=== PATIENT | male | born 1970 | race Caucasian/White ===

== ENCOUNTER 2023-06-30 10:30 | Day surgery (SDC) | payer BC ==
[2023-06-24 14:34] VITALS: BMI 36.2
[~2023-06-30 10:30] MED LIST: HYDROmorphone 0.5 MG/0.5 ML SYRINGE IVP PRN; MIDAZOLAM 2 MG/2 ML VIAL IV PRN; SCOPOLAMINE 1 MG/72 HR PATCH TRANSDERM ONE
[2023-06-30] MEDS: LACTATED RINGERS 1,000 ML IV SCH (10:57)
[2023-06-30 11:05] LABS: Glucose,Whole Blood 114 mg/dL (70-110)
[2023-06-30] MEDS: DEXAMETHASONE SOD PHOSPHATE 4 MG/ML 1 ML VIAL IV ONE (11:09)
[2023-06-30] MEDS: ACETAMINOPHEN TAB 500 MG TAB PO PRN (11:09)
[2023-06-30] MEDS: ONDANSETRON 4 MG/2 ML VIAL IVP ONE (11:09)
[2023-06-30] MEDS: HEPARIN SODIUM,PORCINE 5,000 UNIT/ML 1 ML VIAL SQ PRN (11:16)
[2023-06-30] MEDS: MIDAZOLAM 2 MG/2 ML VIAL IVP ONE (11:53)
[2023-06-30] MEDS: fentaNYL (PF) 50 MCG/ML 2 ML AMP IVP ONE (11:54)
[2023-06-30] MEDS ORDERED: SUCCINYLCHOLINE CHLORIDE 200 MG/10 ML VIAL IV ONE (11:59)
[2023-06-30] MEDS ORDERED: DEXAMETHASONE SOD PHOSPHATE 4 MG/ML 1 ML VIAL ONE (11:59)
[2023-06-30] MEDS ORDERED: KETOROLAC 30 MG/ML 1 ML VIAL ONE (11:59)
[2023-06-30] MEDS ORDERED: MIDAZOLAM 2 MG/2 ML VIAL ONE (11:59)
[2023-06-30] MEDS ORDERED: LIDOCAINE 1% INJ 10MG/ML (20 ML MDV) ONE (11:59)
[2023-06-30] MEDS ORDERED: PROPOFOL 10 MG/ML 20 ML VIAL IV ONE (11:59)
[2023-06-30] MEDS ORDERED: NEOSTIGMINE 1 MG/ML 10 ML VIAL ONE (11:59)
[2023-06-30] MEDS ORDERED: fentaNYL (PF) 50 MCG/ML 2 ML AMP ONE (11:59)
[2023-06-30] MEDS ORDERED: GLYCOPYRROLATE 0.2 MG/ML 2 ML VIAL ONE (11:59)
[2023-06-30] MEDS ORDERED: ROPIVACAINE 5 MG/ML 30 ML VIAL ONE (11:59)
[2023-06-30] MEDS ORDERED: ROCURONIUM 10 MG/ML (5 ML VIAL) IV ONE (11:59)
--- NOTE | 2023-06-30 12:02 | P.ANPRN ---
Procedure Note - Anesthesia - Nerve Block Performed Bilateral Rectus Abdominis Single Time Out Performed: Yes Date of Procedure: 06/30/23 Procedure Start Time: 11:52 Procedure Stop Time: 11:57 Location of Patient: PreOp Indication: Acute Post-Operative Pain, Analgesia, Requested by Surgeon Sedation Type: Sedate with meaningful contact maintained Preparation: Sterile Prep Position: Supine Catheter: None Needle Types: Pajunk Needle Gauge: 21 Ultrasound used to visualize needle placement: Yes Ultrasound used to observe medication spread: Yes Injectate: 0.5% Ropivacaine (see comment for volume) (30cc with 10mg dexamethasone) Blood Aspirated: No Pain Paresthesia on Injection Noted: No Resistance on Injection: Normal Image Stored and Saved: Yes Events: Uneventful and Well Tolerated
[2023-06-30 12:12] VITALS: RESP 16
[2023-06-30] MEDS: BUPIVACAINE (PF) 0.25% 30 ML VIAL SQ ONE ×2 (12:38→13:08)
--- NOTE | 2023-06-30 13:47 | P.OP ---
Date of Procedure: 06/30/23 Procedure(s) Performed: PREOPERATIVE DIAGNOSIS: Incarcerated umbilical hernia POSTOPERATIVE DIAGNOSIS: Same PROCEDURE: Open repair incarcerated umbilical hernia with mesh SURGEON: Dr. Martins ANESTHESIA: General OPERATIVE PROCEDURE DETAILS: The patient was placed in the operating table in the supine position. A left sided periumbilical incision was made using the scalpel. The subcutaneous tissues were dissected bluntly and with cautery. The hernia sac was identified. The umbilical attachments to the fascia were divided using electrocautery. The hernia sac was removed from the undersurface of the umbilical dermis. This was then reduced back into the preperitoneal space. The defect measured 2.2 x 1 cm in size. The fat overlying the fascia was dissected. No additional defects were seen. The preperitoneal space was then dissected using blunt dissection and electrocautery. The 6.4 cm ventral ex mesh was placed beneath the fascia and sutured in place using 4 separate trans-fascial 0 Ethibond sutures. The defect was closed using interrupted vest over pants 0 Ethibond mattress sutures. The subcutaneous tissues were reapproximated using inverted 2-0 & 3-0 Vicryl sutures. The umbilicus was tacked back down to the fascia using a 2-0 Vicryl suture. The skin was closed using 4-0 Monocryl sutures. Skin glue and sterile dressings were then applied. HERNIA CHARACTERISTICS: Length: 1 cm Width: 2.2 cm Type: Incarcerated umbilical TYPE OF MESH USED: Ventral X LOCATION OF MESH: [place] FIXATION: 0 Ethibond PREOPERATIVE DISCUSSION ON SMOKING CESSASTION: Yes PREOPERATIVE DISCUSSION ON MORBID OBESITY: Yes PREOPERATIVE DISCUSSION ON APPROPRIATE USE OF NARCOTIC USE: Yes PREOPERATIVE EDUCATION: Multi Modal, Smoking Cessation and Weight Loss with BMI over 35. DISPOSITION: Stable to recovery room
--- NOTE | 2023-06-30 13:49 | P.GSHP ---
History of Present Illness H&P Date: 06/30/23 Chief Complaint: Incarcerated umbilical hernia 53-year-old male here for elective repair umbilical hernia. Please refer to history and physical from office chart. Patient with slowly enlarging hernia at the umbilicus. Mild soreness with lifting. Increasing in size. - Review of Systems Comment: The patient denies any acute changes in vision or hearing, no dysphagia or odynophagia, no chest pain or shortness of breath, no dysuria or hematuria, no headache, no runny nose, no rectal bleeding or melena, no unexplained weight loss Past Medical History Additional Past Medical History / Comment(s): umbilical hernia History of Any Multi-Drug Resistant Organisms: None Reported Additional Past Surgical History / Comment(s): colonoscopy Past Anesthesia/Blood Transfusion Reactions: No Reported Reaction Additional Past Anesthesia/Blood Transfusion Reaction / Comment(s): no hx blood transfusion Smoking Status: Never smoker - Past Family History Mother Family Medical History: No Reported History Medications and Allergies Home Medications Medication Instructions Recorded Confirmed Type oxyCODONE HCL [OxyIR] 5 mg PO Q6H PRN 3 Days #6 tab 06/30/23 Rx Allergies Allergy/AdvReac Type Severity Reaction Status Date / Time No Known Allergies Allergy Verified 06/30/23 10:51 Surgical - Exam Vital Signs Temp Pulse Resp BP Pulse Ox 97.4 F L 70 18 141/66 96 06/30/23 10:48 06/30/23 10:48 06/30/23 10:48 06/30/23 10:48 06/30/23 10:48 Physical exam: General: Well-developed, well-nourished HEENT: Normocephalic, sclerae nonicteric Abdomen: Nontender, nondistended, incarcerated umbilical hernia Extremities: No edema Neuro: Alert and oriented Results - Labs Abnormal Lab Results - Last 24 Hours (Table) 06/30/23 Range/Units 10:55 POC Glucose (mg/dL) 114 H (70-110) mg/dL Assessment and Plan (1) Incarcerated umbilical hernia Narrative/Plan: 53-year-old male with incarcerated umbilical hernia. Will proceed with open repair incarcerated umbilical hernia with mesh. Risks of bleeding, infection, recurrence, bladder and bowel injury, numbness, nerve injury were discussed with the patient. The patient understands and wishes to proceed. Current Visit: Yes Status: Acute Code(s): K42.0 - UMBILICAL HERNIA WITH OBSTRUCTION, WITHOUT GANGRENE SNOMED Code(s): 369271991
[2023-06-30 14:09] VITALS: TEMP 97.2
[2023-06-30 15:08] VITALS: BP 133/78; PULSE 68
[2023-06-30] MEDS ORDERED: IBUPROFEN 600 MG TAB PO SCH (17:00)
[2023-06-30] MEDS ORDERED: ACETAMINOPHEN TAB 325 MG TAB PO SCH (18:00)
== END 2023-06-30 15:46 | disposition home or self-care (01) ==
LOC: OR 10:30
PROVIDERS: ATTEND Surgery
DX: K42.0 Umbilical hernia with obstruction, without gangrene (principal); G47.33 Obstructive sleep apnea (adult) (pediatric); Z88.5 Allergy status to narcotic agent
CPT/HCPCS: 49592; 64488; C1781; J2250; J0330; J1644; J1100; J2710; J0690; J2405; J2001; J3010; J1885; J2795; J2704; J0665

== ENCOUNTER 2023-10-21 15:23 | Inpatient (IN) | payer BC ==
[2023-10-21] MEDS: ASPIRIN 81 MG PO STA (15:44)
--- NOTE | 2023-10-21 15:48 | ED ---
General Adult HPI - General Chief complaint: Chest Pain Stated complaint: Chest Pain Time Seen by Provider: 10/21/23 15:25 Source: patient, RN/MD, RN notes reviewed Mode of arrival: wheelchair Limitations: no limitations - History of Present Illness Initial comments: Patient is a 53-year-old male present to the emergency department with concerns for chest discomfort. Onset of symptoms was close to 2 weeks ago. Symptoms are only with exertion. Discomfort feels like burning. No radiation. Patient does have associated sweating. No nausea. No diaphoresis. Currently patient is symptom-free. No history of similar symptoms previously. Patient was seen by primary care physician Dr. Choi prior to arrival and advised to come to the emergency department. - Related Data Home Medications Medication Instructions Recorded Confirmed No Known Home Medications 10/21/23 10/21/23 Allergies Allergy/AdvReac Type Severity Reaction Status Date / Time No Known Allergies Allergy Verified 10/21/23 17:24 Review of Systems ROS Statement: Those systems with pertinent positive or pertinent negative responses have been documented in the HPI. ROS Other: All systems not noted in ROS Statement are negative. Constitutional: Denies: fever Eyes: Denies: eye pain ENT: Denies: ear pain Respiratory: Denies: cough, dyspnea Cardiovascular: Reports: as per HPI, chest pain Musculoskeletal: Denies: back pain Past Medical History Additional Past Medical History / Comment(s): umbilical hernia History of Any Multi-Drug Resistant Organisms: None Reported Additional Past Surgical History / Comment(s): colonoscopy Past Anesthesia/Blood Transfusion Reactions: No Reported Reaction Additional Past Anesthesia/Blood Transfusion Reaction / Comment(s): no hx blood transfusion Past Psychological History: No Psychological Hx Reported Smoking Status: Never smoker - Past Family History Mother Family Medical History: No Reported History General Exam Limitations: no limitations General appearance: alert, in no apparent distress Head exam: Present: normocephalic Eye exam: Present: normal appearance Neck exam: Present: normal inspection Respiratory exam: Present: normal lung sounds bilaterally Cardiovascular Exam: Present: regular rate, normal rhythm Expanded Peripheral pulses: 2+: Radial (R), Radial (L), Posterior Tibialis (R), Posterior Tibialis (L) GI/Abdominal exam: Present: soft. Absent: tenderness Extremities exam: Present: normal inspection. Absent: pedal edema, calf tenderness Neurological exam: Present: alert Psychiatric exam: Present: normal affect, normal mood Skin exam: Present: normal color Course Vital Signs 10/21/23 10/21/23 15:27 15:42 Temperature 98.5 F Pulse Rate 77 Pulse Rate [ 75 Pulse Oximetery ] Respiratory 18 Rate Blood Pressure 157/93 O2 Sat by Pulse 97 Oximetry EKG Findings - EKG Results: EKG: interpreted by ERMD (Nonspecific T wave), sinus rhythm, normal axis, normal QRS Medical Decision Making - Medical Decision Making Was pt. sent in by a medical professional or institution (, PA, TRACK HELPER, urgent care, hospital, or [facility]...) When possible be specific @ -Patient was sent in by Dr. Choi Did you speak to anyone other than the patient for history (EMS, parent, family, police, friend...)? What history was obtained from this source @ -I did speak with Dr. Choi regarding patient's symptoms is ideal plan Did you review nursing and triage notes (agree or disagree)? Why? @ -I reviewed and agree with nursing and triage notes Were old charts reviewed (outside hosp., previous admission, EMS record, old EKG, old radiological studies, urgent care reports/EKG's, [facility] records)? Report findings @ -No old charts were reviewed Differential Diagnosis (chest pain, altered mental status, abdominal pain women, abdominal pain men, vaginal bleeding, weakness, fever, dyspnea, syncope, headache, dizziness, GI bleed, back pain, seizure, CVA, palpatations, mental health, musculoskeletal)? @ -Differential Chest Pain: Stable Angina, Unstable Angina, STEMI, NSTEMI Aortic Dissection, Pneumothorax, Musculoskeletal, Esophageal Spasm GERD, Cholecystitis, Pancreatitis, Zoster, this is not meant to be an all-inclusive list. EKG interpreted by me (3pts min.). @ -As above X-rays interpreted by me (1pt min.). @ -Chest x-ray does not show any acute abnormality CT interpreted by me (1pt min.). @ -None done U/S interpreted by me (1pt. min.). @ -None done What testing was considered but not performed or refused? (CT, X-rays, U/S, labs)? Why? @ -None What meds were considered but not given or refused? Why? @ -None Did you discuss the management of the patient with other professionals (professionals i.e. , PA, TRACK HELPER, lab, RT, psych nurse, social science research assistant, applications instructor, teacher, learning officer, foster care case manager)? Give summary @ -Case also discussed with Dr. Nicolas who will admit covering Dr. Choi Was smoking cessation discussed for >3mins.? @ -No Was critical care preformed (if so, how long)? @ -31 minutes critical care time Were there social determinants of health that impacted care today? How? (Homelessness, low income, unemployed, alcoholism, drug addiction, transportation, low edu. Level, literacy, decrease access to med. care, usp, rehab)? @ -No Was there de-escalation of care discussed even if they declined (Discuss DNR or withdrawal of care, Hospice)? DNR status @ -No What co-morbidities impacted this encounter? (DM, HTN, Smoking, COPD, CAD, Cancer, CVA, ARF, Chemo, Hep., AIDS, mental health diagnosis, sleep apnea, morbid obesity)? @ -None Was patient admitted / discharged? Hospital course, mention meds given and route, prescriptions, significant lab abnormalities, going to OR and other pertinent info. @ -Patient reevaluated and resting comfortably in bed. Patient is updated on results and plan. Patient will be admitted with cardiac consult. Admission orders written. Undiagnosed new problem with uncertain prognosis? @ -No Drug Therapy requiring intensive monitoring for toxicity (Heparin, Nitro, Insulin, Cardizem)? @ -Heparin Were any procedures done? @ -No Diagnosis/symptom? @ -Unstable angina Acute, or Chronic, or Acute on Chronic? @ -Acute Uncomplicated (without systemic symptoms) or Complicated (systemic symptoms)? @ -Default Side effects of treatment? @ -No Exacerbation, Progression, or Severe Exacerbation? @ -No Poses a threat to life or bodily function? How? (Chest pain, USA, ME, pneumonia, PE, COPD, DKA, ARF, appy, cholecystitis, CVA, Diverticulitis, Homicidal, Suici armida, threat to staff... and all critical care pts) @ -No - Lab Data Result diagrams: 10/21/23 13:59 10/21/23 13:59 Lab Results 10/21/23 10/21/23 10/21/23 Range/Units 13:59 13:59 13:59 WBC 8.4 (3.8-10.6) k/uL RBC 5.44 (4.30-5.90) m/uL Hgb 15.7 (13.0-17.5) gm/dL Hct 46.6 (39.0-53.0) % MCV 85.7 (80.0-100.0) fL MCH 28.9 (25.0-35.0) pg MCHC 33.7 (31.0-37.0) g/dL RDW 12.6 (11.5-15.5) % Plt Count 175 (150-450) k/uL MPV 8.9 Neutrophils % 56 % Lymphocytes % 32 % Monocytes % 7 % Eosinophils % 3 % Basophils % 1 % Neutrophils # 4.7 (1.3-7.7) k/uL Lymphocytes # 2.7 (1.0-4.8) k/uL Monocytes # 0.6 (0-1.0) k/uL Eosinophils # 0.2 (0-0.7) k/uL Basophils # 0.1 (0-0.2) k/uL PT 10.2 (10.0-12.5) sec INR 0.9 (<1.2) APTT 23.7 (22.0-30.0) sec D-Dimer 0.25 (<0.60) mg/L FEU Sodium 134 L (137-145) mmol/L Potassium 4.5 (3.5-5.1) mmol/L Chloride 102 (98-107) mmol/L Carbon Dioxide 27 (22-30) mmol/L Anion Gap 5 mmol/L BUN 18 (9-20) mg/dL Creatinine 0.75 (0.66-1.25) mg/dL Est GFR (CKD-EPI)AfAm >90 (>60 ml/min/1.73 sqM) Est GFR (CKD-EPI)NonAf >90 (>60 ml/min/1.73 sqM) Glucose 100 H (74-99) mg/dL Calcium 9.1 (8.4-10.2) mg/dL Magnesium 1.9 (1.6-2.3) mg/dL Total Bilirubin 1.0 (0.2-1.3) mg/dL AST 27 (17-59) U/L ALT 23 (4-49) U/L Alkaline Phosphatase 68 (38-126) U/L Troponin I (0.000-0.034) ng/mL Total Protein 7.6 (6.3-8.2) g/dL Albumin 4.7 (3.5-5.0) g/dL 10/21/23 Range/Units 13:59 WBC (3.8-10.6) k/uL RBC (4.30-5.90) m/uL Hgb (13.0-17.5) gm/dL Hct (39.0-53.0) % MCV (80.0-100.0) fL MCH (25.0-35.0) pg MCHC (31.0-37.0) g/dL RDW (11.5-15.5) % Plt Count (150-450) k/uL MPV Neutrophils % % Lymphocytes % % Monocytes % % Eosinophils % % Basophils % % Neutrophils # (1.3-7.7) k/uL Lymphocytes # (1.0-4.8) k/uL Monocytes # (0-1.0) k/uL Eosinophils # (0-0.7) k/uL Basophils # (0-0.2) k/uL PT (10.0-12.5) sec INR (<1.2) APTT (22.0-30.0) sec D-Dimer (<0.60) mg/L FEU Sodium (137-145) mmol/L Potassium (3.5-5.1) mmol/L Chloride (98-107) mmol/L Carbon Dioxide (22-30) mmol/L Anion Gap mmol/L BUN (9-20) mg/dL Creatinine (0.66-1.25) mg/dL Est GFR (CKD-EPI)AfAm (>60 ml/min/1.73 sqM) Est GFR (CKD-EPI)NonAf (>60 ml/min/1.73 sqM) Glucose (74-99) mg/dL Calcium (8.4-10.2) mg/dL Magnesium (1.6-2.3) mg/dL Total Bilirubin (0.2-1.3) mg/dL AST (17-59) U/L ALT (4-49) U/L Alkaline Phosphatase (38-126) U/L Troponin I 0.042 H* (0.000-0.034) ng/mL Total Protein (6.3-8.2) g/dL Albumin (3.5-5.0) g/dL Disposition Clinical Impression: Unstable angina Disposition: ADMITTED IP TO THIS HOSP Is patient prescribed a controlled substance at d/c from ED?: No Referrals: Eric Choi MD [Primary Care Provider] - 1-2 days Time of Disposition: 17:36
[2023-10-21 16:33] LABS: Basophils # (A) 0.1 k/uL (0-0.2); Basophils % (A) 1 %; Eosinophils # (A) 0.2 k/uL (0-0.7); Eosinophils % (A) 3 %; HCT 46.6 % (39.0-53.0); HGB 15.7 gm/dL (13.0-17.5); Lymphocytes # (A) 2.7 k/uL (1.0-4.8); Lymphocytes % (A) 32 %; MCH 28.9 pg (25.0-35.0); MCHC 33.7 g/dL (31.0-37.0); MCV 85.7 fL (80.0-100.0); Mean Platelet Volume 8.9; Monocytes # (A) 0.6 k/uL (0-1.0); Monocytes % (A) 7 %; Neutrophils # (A) 4.7 k/uL (1.3-7.7); Neutrophils % (A) 56 %; Platelet Count 175 k/uL (150-450); RBC 5.44 m/uL (4.30-5.90); RDW 12.6 % (11.5-15.5); WBC 8.4 k/uL (3.8-10.6)
[2023-10-21 16:41] LABS: INR 0.9 (<1.2); Partial Thromboplastin Time 23.7 sec (22.0-30.0); Prothrombin Time 10.2 sec (10.0-12.5)
--- NOTE | 2023-10-21 16:55 | XR ---
EXAMINATION TYPE: XR chest 2V DATE OF EXAM: 10/21/2023 COMPARISON: None HISTORY: 53-year-old male with chest pain TECHNIQUE: PA and lateral views FINDINGS: The cardiomediastinal silhouette, aorta, and pulmonary vasculature are within normal limits. Low lung volumes with crowded vascular markings and streaky densities at the lower lungs suggestive of atelec tasis. Otherwise, lungs and pleural spaces are clear. IMPRESSION: Some hypoventilatory changes and strandy atelectasis in the lower lungs. Otherwise, no acute process seen.
[2023-10-21 17:05] LABS: ALT 23 U/L (4-49); AST 27 U/L (17-59); African American GFR (CKD) >90 (>60 ml/min/1.73 sqM); Albumin 4.7 g/dL (3.5-5.0); Alkaline Phosphatase 68 U/L (38-126); Anion Gap 5 mmol/L; Blood Urea Nitrogen 18 mg/dL (9-20); Calcium 9.1 mg/dL (8.4-10.2); Carbon Dioxide 27 mmol/L (22-30); Chloride 102 mmol/L (98-107); Glucose 100 mg/dL (74-99); Magnesium 1.9 mg/dL (1.6-2.3); Non-African American GFR(CKD) >90 (>60 ml/min/1.73 sqM); Potassium 4.5 mmol/L (3.5-5.1); Sodium 134 mmol/L (137-145); Total Protein 7.6 g/dL (6.3-8.2)
[2023-10-21] MEDS ORDERED: NITROGLYCERIN SL TABS 0.4 MG TAB SUBLINGUAL PRN (17:37)
[2023-10-21] MEDS: HEPARIN SODIUM 1,000 UN/ML (10ML VL) IV ONE (18:03)
[2023-10-21] MEDS: HEPARIN SOD,PORK IN 0.45% NACL 25,000 UNIT in 0.45% NACL 1 250ML.BAG IV SCH (18:03)
[2023-10-21] MEDS: NITROGLYCERIN OINT 1 INCH/GM PACKET TOPICAL SCH (18:04)
[2023-10-22 03:44] LABS: Mean Platelet Volume 9.1; Platelet Count 149 k/uL (150-450)
[2023-10-22] MEDS: HEPARIN SODIUM 1,000 UN/ML (10ML VL) IV PRN (05:36)
[2023-10-22] MEDS ORDERED: ALPRAZolam 0.25 MG TAB PO PRN (08:28)
[2023-10-22] MEDS ORDERED: ALPRAZolam 0.5 MG TAB PO PRN (08:28)
[2023-10-22] MEDS ORDERED: NITROGLYCERIN SL TABS 0.4 MG TAB SUBLINGUAL PRN (08:28)
[2023-10-22] MEDS ORDERED: ASPIRIN 325 MG TAB PO SCH (09:00)
[2023-10-22] MEDS: ATORVASTATIN 80 MG TAB PO STA (09:02)
[2023-10-22] MEDS: ASPIRIN 325 MG TAB PO STA (09:03)
[2023-10-22] MEDS: SODIUM CHLORIDE 0.9% 1,000 ML in EMPTY BAG 1 BAG IV SCH (09:04)
[2023-10-22 09:19] LABS: Chol/HDL Ratio 5.7 Ratio; HDL Cholesterol 34.4 mg/dL (40.00-60.00); VLDL Calculation 127.2 mg/dL (5.00-40.00)
[2023-10-22] MEDS ORDERED: LIDOCAINE 1% INJ 10MG/ML (20 ML MDV) ONE (10:42)
[2023-10-22] MEDS ORDERED: HEPARIN SODIUM 1,000 UN/ML (10ML VL) ONE ×2 (10:42→12:07)
[2023-10-22] MEDS ORDERED: VERAPAMIL 2.5 MG/ML 2 ML AMP ONE (10:42)
[2023-10-22] MEDS: IV FLUID CONTINUATION 1,000 ML IV ONE (11:00)
[2023-10-22] MEDS ORDERED: fentaNYL (PF) 50 MCG/ML 2 ML AMP ONE (11:09)
[2023-10-22] MEDS: MIDAZOLAM 2 MG/2 ML VIAL IVP ONE (11:12)
[2023-10-22] MEDS: fentaNYL (PF) 50 MCG/ML 2 ML AMP IVP ONE (11:12)
[2023-10-22] MEDS: LIDOCAINE 1% INJ 10MG/ML (20 ML MDV) SQ ONE (11:14)
[2023-10-22] MEDS: HEPARIN SODIUM 1,000 UN/ML (10ML VL) IV ONE ×2 (11:20→12:08)
[2023-10-22] MEDS ORDERED: TICAGRELOR 90 MG TAB ONE (11:39)
[2023-10-22] MEDS: TICAGRELOR 90 MG TAB PO ONE (11:46)
--- NOTE | 2023-10-22 11:54 | P.CARDCATH ---
Date of Procedure: 10/22/23 Description of Procedure: DIAGNOSTIC CORONARY ANGIOGRAPHY and LEFT HEART CATH REPORT PROCEDURES PERFORMED: Left heart catheterization Selective coronary angiography Moderate conscious sedation 20 mins Right radial access INDICATION: NSTEMI. 53-year-old presented to hospital with exertional substernal chest pressure which gets better with resting. He also had mildly elevated troponin on admission. ECG did not show significant ST or T wave changes. Due to his ongoing substernal chest pressure and elevated troponin he was ruled in as NSTEMI and was taken for heart catheterization procedure. CONSENT: I have explained the procedural steps of above-mentioned procedures in layman's terms to the patient. I discussed the risks (including but not limited to stroke, emergent vascular or cardiac surgery or ), benefits and alternative therapies for the above-mentioned procedure. I discussed the risks of sedation/analgesia and blood product administration (if indicated). The patient has indicated understanding and acceptance of these risks. Conscious Sedation: Patient's ECG, heart rate, blood pressure, pulse oximetry were monitored throughout the duration of procedure under my direct supervision. [2] mg Versed and [50] mg Fentanyl were used for induction of moderate conscious sedation. Total duration of moderate concious sedation 20 minutes. PROCEDURE: After explaining the risks, benefits and alternatives of the above mentioned procedures in detail to the patient, informed consent was obtained. Patient was taken to the catheterization lab, prepped and draped in usual sterile fashion using universal precuations. Barbow and feroz test were performed to confirm adequate perfusion to fingers. 1% lidocaine was infiltrated over the right radial artery. A 6-Slovenian sheath was placed and secured in the right radial artery using modified Seldinger technique. The sheath was flushed and 5 mg verapamil was administered intra-arterially. J tipped wire was advanced under fluoroscopic guidance. Once the wire tip reached aortic root [5000] units of IV heparin was given. Patient was on IV heparin drip which was turned off 45 minutes before starting the heart cath procedure. Over the wire JR4 diagnostic catheter was advanced. The wire in place the catheter was manipulated to cross the aortic valve and entered into LV under fluoroscopy guidance. The wire was removed and the catheter was flushed. LV pressures were obtained and pullback was performed under fluoroscopy. Catheter was manipulated to selectively engage the right coronary ostium. Right coronary angiography was performed in different angiographic projections. The JR4 diagnostic catheter was exchanged for a JL 3.5 diagnostic catheter over the J-wire. The wire was removed, catheter was flushed and manipulated under fluoroscopy to selectively engaged the left coronary ostium. Left coronary angioplasty was performed in different angiographic projections. Catheter was removed over the wire. Radial sheath was flushed. The wire was left in place. The findings were discussed with Dr. De La Torre and shared decision was made to proceed with LAD intervention. Blood samples collected to measure ACT. HEMODYNAMICS: LVEDP 15 mmHg. There was no significant gradient across the aortic valve. SELECTIVE CORONARY ARTERIOGRAPHY: LEFT MAIN: The left main is a large caliber vessel which trifurcates into the LAD, ramus intermediate and circumflex. Left main appears angiographically normal. LEFT ANTERIOR DESCENDING CORONARY ARTERY: LAD is a large caliber vessel which wraps around to the apex. Distal part of proximal LAD has 20-30 % tubular disease. Just after giving diagonal 1 branch, mid LAD has 95 to 99% tubular stenosis. Distal LAD appears angiographically normal and wraps around the apex. Diagonal branches are small caliber and appears angiographically normal RAMUS: Medium sized vessel with mild luminal irregularities, otherwise angiographically patent. LEFT CIRCUMFLEX CORONARY ARTERY: It is nondominant vessel. Left circumflex is a moderate caliber vessel. Proximal and mid LCx has mild luminal irregularities. It gives rise to OM branches appears angiographically normal. Distal LCx appears angiographically normal RIGHT CORONARY ARTERY: Dominant vessel. The right coronary artery is a large caliber vessel. RCA has mild diffuse luminal irregularities. It bifurcates into PDA and PL branches appears angiographically normal IMPRESSION: 95 to 99% mid LAD stenosis, LISSA-3 flow Mild luminal irregularities in other coronaries Normal left sided filling pressures PLAN: Plan for PCI of mid LAD with Dr. De La Torre Further plans to follow. Please refer to Dr. De La Torre's procedure report. Performing Physician Byron Hein MD, FACC, RPVI Thank you for allowing [facility] to participate in this patient's care. Feel free to reach out in case of any followup questions.
[2023-10-22] MEDS: IOPAMIDOL-370 100ML BTL INJ ONE ×2 (12:08→12:11)
[2023-10-22] MEDS ORDERED: MAG HYDROX/AL HYDROX/SIMETH 30 ML CUP PO PRN (12:21)
[2023-10-22] MEDS ORDERED: ATROPINE SULFATE 0.1 MG/ML 10ML SYRINGE IV PRN (12:21)
[2023-10-22] MEDS ORDERED: RX INFO: IV CONTRAST WAS GIVEN 1 EACH MISC MISCELLANE PRN (12:21)
[2023-10-22] MEDS ORDERED: ZOLPIDEM 5 MG TAB PO PRN (12:21)
--- NOTE | 2023-10-22 12:52 | P.CRDCN ---
History of Present Illness History of present illness: HISTORY OF PRESENT ILLNESS: This is a 53-year-old male with a past medical history significant for recent hernia repair. Patient does not follow with a retort forker. We have been asked to see the patient in consultation for elevated troponins. Patient examined at the bedside in the emergency room. Patient states about 2 weeks ago he began having discomfort between his shoulder blades and then he began to have discomfort in the middle of his chest. He states the pain is worse with exertion. He states anytime that he walks even if it is only a block he will get chest pain. He states the pain does resolve with rest. He denies any other symptoms besides the chest pain. He denies a history of hypertension, hyperlipidemia, or diabetes. He is a non-smoker. He denies any previous cardiac history. DIAGNOSTICS: - EKG reveals sinus mechanism with no signs of acute ischemia. - Chest xray negative for acute process. - Laboratory data: Troponin 0.042. 0.049. 0.050. - Current home cardiac medications include: None REVIEW OF SYSTEMS: At the time of my exam: CONSTITUTIONAL: Denies fever or chills. HEENT: Denies blurred vision, vision changes, or eye pain. Denies hemoptysis CARDIOVASCULAR: Denies chest pain. Denies orthopnea. Denies PND. Denies palpitations RESPIRATORY: Denies shortness of breath. GASTROINTESTINAL: Denies abdominal pain. Denies nausea or vomiting. HEMATOLOGIC: Denies bleeding disorders. GENITOURINARY: Denies any blood in urine. SKIN: Denies pruitis. Denies rash. PHYSICAL EXAM: VITAL SIGNS: Reviewed. GENERAL: Well-developed in no acute distress. HEENT: Head is normocephalic. Pupils are equal, round. Sclerae anicteric. Mucous membranes of the mouth are moist. Neck supple. No JVD or thyromegaly LUNGS: Respirations even and unlabored. Lungs essentially clear to auscultation bilaterally. HEART: Regular rate and rhythm. S1 and S2 heard. ABDOMEN: Soft. Nondistended. Nontender. EXTREMITIES: Normal range of motion. No clubbing or cyanosis. Peripheral pulses intact. No lower extremity edema NEUROLOGIC: Awake and alert. Oriented x 3. ASSESSMENT: Non-STEMI with exertional angina Recent hernia repair Obesity: BMI 37.0 PLAN: Obtain 2D echo to assess cardiac structure and function Continue IV heparin Begin aspirin 81 mg daily Begin atorvastatin 80 mg at night Patient to undergo cardiac catheterization today with Dr. Hein Further recommendations pending patient course Nurse practitioner note has been reviewed by physician. Signing provider agrees with the documented findings, assessment, and plan of care documented by BUSINESS OFFICE TECHNOLOGY INSTRUCTOR as a scribe. Past Medical History Additional Past Medical History / Comment(s): umbilical hernia History of Any Multi-Drug Resistant Organisms: None Reported Additional Past Surgical History / Comment(s): colonoscopy Past Anesthesia/Blood Transfusion Reactions: No Reported Reaction Additional Past Anesthesia/Blood Transfusion Reaction / Comment(s): no hx blood transfusion Past Psychological History: No Psychological Hx Reported Smoking Status: Never smoker - Past Family History Mother Family Medical History: No Reported History Medications and Allergies Home Medications Medication Instructions Recorded Confirmed Type No Known Home Medications 10/21/23 10/21/23 History Allergies Allergy/AdvReac Type Severity Reaction Status Date / Time No Known Allergies Allergy Verified 10/21/23 17:24 Physical Exam Vitals: Vital Signs Temp Pulse Pulse Resp BP Pulse Ox 10/22/23 07:38 64 12 10/22/23 06:22 59 L 18 124/61 97 10/22/23 00:28 66 18 149/86 96 10/21/23 21:03 97.3 F L 64 17 120/71 96 10/21/23 18:10 98.8 F 70 17 148/84 96 10/21/23 17:35 97.3 F L 70 16 133/81 96 10/21/23 15:42 75 10/21/23 15:27 98.5 F 77 18 157/93 97 Intake and Output 10/21/23 10/22/23 10/22/23 22:59 06:59 14:59 Intake Total 115.833 Balance 115.833 Intake: Intake, IV Titration 115.833 Amount Heparin Sod,Pork in 0.45% 115.833 NaCl 25,000 unit In 0.45 % NaCl 1 250ml.bag @ 8. 319 UNITS/KG/HR 10 mls/hr IV .Q24H [facility] Rx#: [id number] Other: Weight 120.202 kg Results 10/22/23 03:24 10/21/23 13:59 Cardiac Enzymes 10/21/23 10/21/23 10/21/23 Range/Units 13:59 13:59 17:45 AST 27 (17-59) U/L Troponin I 0.042 H* 0.049 H* (0.000-0.034) ng/mL 10/21/23 Range/Units 20:45 AST (17-59) U/L Troponin I 0.050 H* (0.000-0.034) ng/mL Coagulation 10/21/23 10/21/23 10/22/23 Range/Units 13:59 17:45 00:07 PT 10.2 (10.0-12.5) sec APTT 23.7 24.0 31.1 H (22.0-30.0) sec 10/22/23 Range/Units 03:24 PT (10.0-12.5) sec APTT 29.9 (22.0-30.0) sec CBC 10/21/23 10/22/23 Range/Units 13:59 03:24 WBC 8.4 (3.8-10.6) k/uL RBC 5.44 (4.30-5.90) m/uL Hgb 15.7 (13.0-17.5) gm/dL Hct 46.6 (39.0-53.0) % Plt Count 175 149 L (150-450) k/uL Comprehensive Metabolic Panel 10/21/23 Range/Units 13:59 Sodium 134 L (137-145) mmol/L Potassium 4.5 (3.5-5.1) mmol/L Chloride 102 (98-107) mmol/L Carbon Dioxide 27 (22-30) mmol/L BUN 18 (9-20) mg/dL Creatinine 0.75 (0.66-1.25) mg/dL Glucose 100 H (74-99) mg/dL Calcium 9.1 (8.4-10.2) mg/dL AST 27 (17-59) U/L ALT 23 (4-49) U/L Alkaline Phosphatase 68 (38-126) U/L Total Protein 7.6 (6.3-8.2) g/dL Albumin 4.7 (3.5-5.0) g/dL Current Medications Generic Name Dose Route Start Last Admin Trade Name Freq PRN Reason Stop Dose Admin Aspirin 325 mg 10/22/23 09:00 Aspirin 325 Mg Tab PO DAILY NAHED Heparin Sodium (Porcine) 0 unit 10/22/23:28 10/22/23 05:36 Heparin Sodium 1,000 Un/Ml (10ml Vl) IV 4,000 unit PER PROTOCOL PRN Administration Low PTT Protocol Heparin Sodium/Sodium Chloride 250 mls @ 10 mls/hr 10/21/23 17:45 10/22/23 05:38 25,000 unit/ Sodium Chloride IV 11.319 units/kg/hr .Q24H NAHED 13.606 mls/hr Titration Protocol 8.319 UNITS/KG/HR Nitroglycerin 0.4 mg 10/21/23 17:37 Nitroglycerin Sl Tabs 0.4 Mg Tab SUBLINGUAL Q5M PRN Chest Pain Nitroglycerin 0.5 inch 10/21/23 18:00 10/22/23 05:40 Nitroglycerin Oint 1 Inch/Gm Packet TOPICAL 0.5 inch Q6HR NAHED Administration Intake and Output 10/21/23 10/22/23 10/22/23 22:59 06:59 14:59 Intake Total 115.833 Balance 115.833 Intake: Intake, IV Titration 115.833 Amount Heparin Sod,Pork in 0.45% 115.833 NaCl 25,000 unit In 0.45 % NaCl 1 250ml.bag @ 8. 319 UNITS/KG/HR 10 mls/hr IV .Q24H [facility] Rx#: [id number] Other: Weight 120.202 kg 10/22/23 03:24 10/21/23 13:59
--- NOTE | 2023-10-22 13:27 | P.PRCINT ---
Percutaneous Coronary Int. - Percutaneous Coronary Intervention Percutaneous Coronary Intervention: PROCEDURES PERFORMED: Left coronary angiography, PCI of mid LAD with a 3.0 x 18mm Xience ASHTYN, post dilated with a 3.5 mm NC balloon, IVUS LAD INDICATION: Unstable angina, NYHA class 4 symptoms with minimal exertion and at rest CONSENT:I have discussed the risks, benefits and alternative therapies for the above-mentioned procedure and for both sedation/analgesia as well as necessary blood product administration, if indicated, as they pertain to this patient. The patient has indicated understanding and acceptance of the risks and procedures discussed. PROCEDURE: After the risks, benefits and alternatives of the above mentioned procedure explained in detail with the patient, informed consent was obtained. Patient was taken to the catheterization lab and prepped and draped in usual fashion. A 6-[place] sheath was placed in the right radial artery previously. The decision was made to perform PCI of LAD. A 6-[place] CLS 3.5 guide was used to engage the left main. Heparin was given for ACT greater than 250. A 0.014 pressure wire was advanced distal LAD. Predilation was performed with a 2.5 mm balloon. Intravascular ultrasound was performed which showed reference vessel 3.0-3.5 mm. A 3.0 x 18 mm Xience ASHTYN was placed just after a diagonal 1 branch. Repeat intravascular ultrasound showed some underexpansion of the proximal edge of the stent. Therefore post-dilation was performed with a 3.5 mm noncompliant balloon. Final angiograms were performed. Preintervention there is 95% stenosis and LISSA-3 flow and postintervention there was 0% stenosis and LISSA-3 flow. The right radial sheath was removed and a TR band was placed with hemostasis achieved. The patient tolerated the procedure well. Patient was transported back to the post catheterization holding area in stable condition. Conscious Sedation: Patient was monitored under the direct supervision of myself for conscious sedation using Versed and fentanyl for a total duration of 43 minutes HEMODYNAMICS: Ao: 142/78 SELECTIVE CORONARY ARTERIOGRAPHY: LEFT MAIN: The left main is a large caliber vessel which trifurcates into the LAD, ramus and circumflex. There is no significant stenosis. LEFT ANTERIOR DESCENDING CORONARY ARTERY: LAD is a large caliber vessel which wraps around to the apex. There is Mild proximal to mid LAD 20-30% stenosis and then a more focal 95% stenosis after a small to moderate caliber diagonal 1 branch. There are otherwise mild luminal irregularities. LEFT CIRCUMFLEX CORONARY ARTERY: Left circumflex is a moderate caliber vessel with mild luminal irregularities RIGHT CORONARY ARTERY: The right coronary artery was not imaged, see separate report FINAL IMPRESSION: 1. CAD as described above including 95% mid LAD stenosis and otherwise mild CAD 2. S/p PCI of mid LAD with a 3.0 x 18mm Xience ASHTYN, post dilated with a 3.5 mm NC balloon PLAN: 1. Aggressive risk factor modification per most recent ACC/AHA guidelines. 2. Continue dual antiplatelets with aspirin and Brillinta for 12 months
--- NOTE | 2023-10-22 14:20 | P.HPIM ---
History of Present Illness H&P Date: 10/22/23 History of present illness; patient is a 53-year-old gentleman with no significant past medical history who presented to ER for chest pain. Patient stated that he has been having exertional chest pain for the last 2 weeks. Chest pain is central in location, brought on by exertion. Chest pain is c entral in location, burning in nature, nonradiating, no relieving factor associated with this chest pain. Denies any nausea, vomiting abdominal pain. Because of this exertional chest pain, patient went to his PCP office who told him to come to the ER. Initial lab work done in the ER showed WBC 8.4, hemoglobin 15.7, platelet count 175, D-dimer 0.25, sodium 134, potassium 4.5, BUN 18, creatinine 0.75, troponin 0.042 EKG done in the ER showed heart rate of 73, no ST segment elevation or depressio n seen, no T-wave inversions seen. Chest x-ray done in the ER some hypoventilatory changes and strandy atelectasis in the lower lungs, no acute process seen Patient admitted to internal medicine service REVIEW OF SYSTEMS: CONSTITUTIONAL: No fever, no malaise, no fatigue. HEENT: No recent visual problems or hearing problems. Denied any sore throat. CARDIOVASCULAR: As mentioned HPI PULMONARY: No shortness of breath, no cough, no hemoptysis. GASTROINTESTINAL: No diarrhea, no nausea, no vomiting, no abdominal pain. NEUROLOGICAL: No headaches, no weakness, no numbness. HEMATOLOGICAL: Denies any bleeding or petechiae. GENITOURINARY: Denies any burning micturition, frequency, or urgency. MUSCULOSKELETAL/RHEUMATOLOGICAL: Denies any joint pain, swelling, or any muscle pain. ENDOCRINE: Denies any polyuria or polydipsia. The rest of the 14-point review of systems is negative. PHYSICAL EXAMINATION: GENERAL: The patient is alert and oriented x3, not in any acute distress. Well developed, well nourished. HEENT: Pupils are round and equally reacting to light. EOMI. No scleral icterus. No conjunctival pallor. Normocephalic, atraumatic. No pharyngeal erythema. No thyromegaly. CARDIOVASCULAR: S1 and S2 present. No murmurs, rubs, or gallops. PULMONARY: Chest is clear to auscultation, no wheezing or crackles. ABDOMEN: Soft, nontender, nondistended, normoactive bowel sounds. No palpable organomegaly. MUSCULOSKELETAL: No joint swelling or deformity. EXTREMITIES: No cyanosis, clubbing, or pedal edema. NEUROLOGICAL: Gross neurological examination did not reveal any focal deficits. SKIN: No rashes. Assessment and plan NSTEMI Monitor vital signs Monitor CBC Monitor CMP Continue telemetry monitoring Trend troponins Ordered 2D echo Start aspirin, Lipitor Ordered HbA1c level ordered lipid panel Start pharmacy dose heparin Consult cardiology Labs and medication were reviewed.. Continue same treatment. Continue with symptomatic treatment. Resume home medication. Monitor labs and vitals. DVT and GI prophylaxis. Further recommendations as per clinical course of the patient Dictation was produced using [employer] dictation software. please excuse any grammatical, word or spelling errors. Past Medical History Additional Past Medical History / Comment(s): umbilical hernia History of Any Multi-Drug Resistant Organisms: None Reported Additional Past Surgical History / Comment(s): colonoscopy Past Anesthesia/Blood Transfusion Reactions: No Reported Reaction Additional Past Anesthesia/Blood Transfusion Reaction / Comment(s): no hx blood transfusion Past Psychological History: No Psychological Hx Reported Smoking Status: Never smoker - Past Family History Mother Family Medical History: No Reported History Medications and Allergies Home Medications Medication Instructions Recorded Confirmed Type No Known Home Medications 10/21/23 10/21/23 History Allergies Allergy/AdvReac Type Severity Reaction Status Date / Time No Known Allergies Allergy Verified 10/21/23 17:24 Physical Exam Vitals: Vital Signs Temp Pulse Pulse Resp BP Pulse Ox 10/22/23 09:05 64 14 142/84 96 10/22/23 07:38 64 12 10/22/23 06:22 59 L 18 124/61 97 10/22/23 00:28 66 18 149/86 96 10/21/23 21:03 97.3 F L 64 17 120/71 96 10/21/23 18:10 98.8 F 70 17 148/84 96 10/21/23 17:35 97.3 F L 70 16 133/81 96 10/21/23 15:42 75 10/21/23 15:27 98.5 F 77 18 157/93 97 Intake and Output 10/21/23 10/22/23 10/22/23 22:59 06:59 14:59 Intake Total 115.833 Balance 115.833 Intake: Intake, IV Titration 115.833 Amount Heparin Sod,Pork in 0.45% 115.833 NaCl 25,000 unit In 0.45 % NaCl 1 250ml.bag @ 8. 319 UNITS/KG/HR 10 mls/hr IV .Q24H [facility] Rx#: [id number] Other: Weight 120.202 kg Results CBC & Chem 7: 10/22/23 03:24 10/21/23 13:59 Labs: Abnormal Lab Results - Last 24 Hours (Table) 10/21/23 10/21/23 10/21/23 Range/Units 13:59 13:59 17:45 Plt Count (150-450) k/uL APTT (22.0-30.0) sec Sodium 134 L (137-145) mmol/L Glucose 100 H (74-99) mg/dL Troponin I 0.042 H* 0.049 H* (0.000-0.034) ng/mL Triglycerides (0.00-149.00) mg/dL VLDL Cholesterol, Calc (5.00-40.00) mg/dL HDL Cholesterol (40.00-60.00) mg/dL 10/21/23 10/22/23 10/22/23 Range/Units 20:45 00:07 03:24 Plt Count 149 L (150-450) k/uL APTT 31.1 H (22.0-30.0) sec Sodium (137-145) mmol/L Glucose (74-99) mg/dL Troponin I 0.050 H* (0.000-0.034) ng/mL Triglycerides (0.00-149.00) mg/dL VLDL Cholesterol, Calc (5.00-40.00) mg/dL HDL Cholesterol (40.00-60.00) mg/dL 10/22/23 Range/Units 03:24 Plt Count (150-450) k/uL APTT (22.0-30.0) sec Sodium (137-145) mmol/L Glucose (74-99) mg/dL Troponin I (0.000-0.034) ng/mL Triglycerides 636.00 H (0.00-149.00) mg/dL VLDL Cholesterol, Calc 127.20 H (5.00-40.00) mg/dL HDL Cholesterol 34.40 L (40.00-60.00) mg/dL
--- NOTE | 2023-10-22 16:54 | CA ---
Transthoracic Echo Report Name: Chidi Mandujano Age: 53 Gender: M : 1970 Exam Date: 10/22/2023 13:52 Exam Location: [facility] Ht (in): 71 Wt (lb): 265 Ordering Physician: Eusebio Paul DO Attending/Referring Phys: Farm Loan Representative Hillary Carvajal RDCS Procedure CPT: Indications: UA Cardiac Hx: stent Technical Quality: Fair Contrast 1: Total Dose (mL): Contrast 2: Total Dose (mL): MEASUREMENTS (Male / Female) Normal Values 2D ECHO LV Diastolic Diameter PLAX 5.4 cm 4.2 - 5.9 / 3.9 - 5.3 cm LV Systolic Diameter PLAX 3.9 cm IVS Diastolic Thickness 1.5 cm 0.6 - 1.0 / 0.6 - 0.9 cm LVPW Diastolic Thickness 1.2 cm 0.6 - 1.0 / 0.6 - 0.9 cm LV Relative Wall Thickness 0.5 RV Internal Dim ED PLAX 3.7 cm LA Systolic Diameter LX 3.7 cm 3.0 - 4.0 / 2.7 - 3.8 cm LV Diastolic Volume MOD 4C 99.4 cm??? LV Systolic Volume MOD 4C 41.5 cm??? LV Ejection Fraction MOD 4C 58.2 % LV Cardiac Index MOD 4C 1527.5 cm???/min???m??? LV Diastolic Length 4C 8.6 cm LV Systolic Length 4C 7.4 cm LV Diastolic Volume MOD 2C 117.7 cm??? LV Systolic Volume MOD 2C 41.7 cm??? LV Ejection Fraction MOD 2C 64.6 % LV Cardiac Index MOD 2C 2008.2 cm???/min???m??? LV Diastolic Length 2C 7.9 cm LV Systolic Length 2C 6.7 cm LA Volume 51.9 cm??? 18 - 58 / 22 - 52 cm??? LA Volume Index 20.8 cm???/m??? 16 - 28 cm???/m??? M-MODE Aortic Root Diameter MM 4.1 cm MV E Point Septal Separation 0.9 cm AV Cusp Separation MM 2.5 cm DOPPLER AV Peak Velocity 119.8 cm/s AV Peak Gradient 5.7 mmHg MV Area PHT 3.2 cm??? Mitral E Point Velocity 79.3 cm/s Mitral A Point Velocity 66.2 cm/s Mitral E to A Ratio 1.2 MV Deceleration Time 237.4 ms LV E' Lateral Velocity 9.7 cm/s Mitral E to LV E' Lateral Ratio 8.2 LV E' Septal Velocity 9.2 cm/s Mitral E to LV E' Septal Ratio 8.7 TR Peak Velocity 200.9 cm/s TR Peak Gradient 16.1 mmHg Right Ventricular Systolic Press 21.1 mmHg FINDINGS Left Ventricle Left ventricular ejection fraction is estimated at 55-60 %. Left ventricular cavity size normal. Moderately increased septal wall thickness. No obvious regional wall motion abnormalities. Right Ventricle Mild right ventricular dilatation. Right ventricular systolic pressure within normal limits. Right Atrium Normal right atrial size. No right atrial thrombus or mass seen. Left Atrium Normal left atrial size. Mitral Valve Structurally normal mitral valve. No mitral stenosis, regurgitation or prolapse. Aortic Valve Trileaflet aortic valve. No aortic valve stenosis or regurgitation. Tricuspid Valve Structurally normal tricuspid valve. Mild tricuspid regurgitation. Pulmonic Valve Structurally normal pulmonic valve. No pulmonic regurgitation. Pericardium No pericardial or pleural effusion. Aorta Mild aortic dilatation at the level of the sinuses of valsalva 41 mm CONCLUSIONS Left ventricular ejection fraction is estimated at 55-60 %. Moderately increased septal wall thickness. No obvious regional wall motion abnormalities. Mild right ventricular dilatation with preserved systolic function. Mild RA dilatation RVSP 21 mmHg No significant valvular dysfunction Mild aortic root dilatation with sinus of Valsalva measuring 4.1 cm Previewed by: Dr Byron Hein (Electronically Signed) Final Date: 22 Oct 2023 16:53
[2023-10-22] MEDS: METOPROLOL TARTRATE 25 MG TAB PO SCH (20:37)
[2023-10-22] MEDS: TICAGRELOR 90 MG TAB PO SCH (20:37)
[2023-10-23] MEDS ORDERED: HEPARIN SODIUM,PORCINE 10,000 UNIT in SODIUM CHLORIDE 0.9% 1,000 ML IRRIGATION PRN (07:00)
[2023-10-23] MEDS ORDERED: HEPARIN SODIUM,PORCINE (1 ML) 2,500 UNIT in SODIUM CHLORIDE 0.9% 250 ML IRRIGATION PRN (07:00)
[2023-10-23 08:54] VITALS: BP 150/74; PULSE 60; RESP 16; TEMP 97.9
[2023-10-23] MEDS: EZETIMIBE 10 MG TAB PO SCH (09:01)
[2023-10-23] MEDS: ASPIRIN 81 MG PO SCH (09:01)
[2023-10-23 09:24] LABS: Basophils % (A) 1 %; Eosinophils # (A) 0.3 k/uL (0-0.7); Eosinophils % (A) 4 %; HCT 46.1 % (39.0-53.0); HGB 15.5 gm/dL (13.0-17.5); Lymphocytes # (A) 1.9 k/uL (1.0-4.8); Lymphocytes % (A) 26 %; MCH 28.8 pg (25.0-35.0); MCHC 33.6 g/dL (31.0-37.0); MCV 85.6 fL (80.0-100.0); Mean Platelet Volume 9.7; Monocytes # (A) 0.4 k/uL (0-1.0); Monocytes % (A) 6 %; Neutrophils # (A) 4.3 k/uL (1.3-7.7); Neutrophils % (A) 61 %; Platelet Count 161 k/uL (150-450); RBC 5.39 m/uL (4.30-5.90); RDW 13.1 % (11.5-15.5); WBC 7.1 k/uL (3.8-10.6)
[2023-10-23 09:36] LABS: ALT 23 U/L (4-49); AST 26 U/L (17-59); African American GFR (CKD) >90 (>60 ml/min/1.73 sqM); Albumin 4.2 g/dL (3.5-5.0); Alkaline Phosphatase 69 U/L (38-126); Anion Gap 8 mmol/L; Blood Urea Nitrogen 14 mg/dL (9-20); Carbon Dioxide 23 mmol/L (22-30); Chloride 106 mmol/L (98-107); Glucose 161 mg/dL (74-99); Non-African American GFR(CKD) >90 (>60 ml/min/1.73 sqM); Potassium 4.4 mmol/L (3.5-5.1); Sodium 137 mmol/L (137-145); Total Bilirubin 1.7 mg/dL (0.2-1.3)
--- NOTE | 2023-10-23 13:10 | P.DS ---
Providers Date of admission: 10/23/23 08:15 Expected date of discharge: 10/23/23 Attending physician: Delmis Griffiths Consults: 10/21/23 17:37 Consult Physician Urgent Consulting Provider: Arvin De La Torre Consult Reason/Comments: ua Do you want consulting provider notified?: Yes 10/22/23 12:22 Consult Physician Routine Consulting Provider: [facility] Consult Reason/Comments: Post Interventional Patient Do you want consulting provider notified?: Already Contacted Primary care physician: Eric Choi Hospital Course: Discharge diagnoses; NSTEMI Recent hernia repair Obesity Prediabetes with HbA1c level of 6.4 Hospital course; patient is a 53-year-old gentleman with no significant past medical history who presented to ER for chest pain. Patient stated that he has been having exertional chest pain for the last 2 weeks. Chest pain is central in location, brought on by exertion. Chest pain is central in location, burning in nature, nonradiating, no relieving factor associated with this chest pain. Denies any nausea, vomiting abdominal pain. Because of this exertional chest pain, patient went to his PCP office who told him to come to the ER. Initial lab work done in the ER showed WBC 8.4, hemoglobin 15.7, platelet count 175, D-dimer 0.25, sodium 134, potassium 4.5, BUN 18, creatinine 0.75, troponin 0.042 EKG done in the ER showed heart rate of 73, no ST segment elevation or depression seen, no T-wave inversions seen. Chest x-ray done in the ER some hypoventilatory changes and strandy atelectasis in the lower lungs, no acute process seen Patient admitted to internal medicine service 10/22. Patient seen and examined. Patient underwent cardiac cath on 10/21 PCI of mid LAD with a 3.0 x 18mm Xience ASHTYN, post dilated with a 3.5 mm NC balloon. Postcardiac cath patient is doing better. Currently on aspirin Brilinta. Cardiology cleared the patient for discharge PHYSICAL EXAMINATION: GENERAL: The patient is alert and oriented x3, not in any acute distress. Well developed, well nourished. HEENT: Pupils are round and equally reacting to light. EOMI. No scleral icterus. No conjunctival pallor. Normocephalic, atraumatic. No pharyngeal erythema. No thyromegaly. CARDIOVASCULAR: S1 and S2 present. No murmurs, rubs, or gallops. PULMONARY: Chest is clear to auscultation, no wheezing or crackles. ABDOMEN: Soft, nontender, nondistended, normoactive bowel sounds. No palpable organomegaly. MUSCULOSKELETAL: No joint swelling or deformity. EXTREMITIES: No cyanosis, clubbing, or pedal edema. NEUROLOGICAL: Gross neurological examination did not reveal any focal deficits. SKIN: No rashes. Dictation was produced using [employer] dictation software. please excuse any grammatical, word or spelling errors. Patient Condition at Discharge: Fair Plan - Discharge Summary New Discharge Prescriptions: New Nitroglycerin Sl Tabs [Nitrostat] 0.4 mg SUBLINGUAL Q5M PRN #30 tab PRN Reason: Chest Pain Aspirin 81 mg PO DAILY 30 Days #30 tab Ticagrelor [Brilinta] 90 mg PO BID 30 Days #60 tab Atorvastatin [Lipitor] 80 mg PO HS 30 Days #30 tab Metoprolol Tartrate [Lopressor] 25 mg PO BID 30 Days #60 tab Ezetimibe [Zetia] 10 mg PO DAILY 30 Days #30 tab Discharge Medication List Aspirin 81 mg PO DAILY 30 Days #30 tab 10/23/23 [Rx] Atorvastatin [Lipitor] 80 mg PO HS 30 Days #30 tab 10/23/23 [Rx] Ezetimibe [Zetia] 10 mg PO DAILY 30 Days #30 tab 10/23/23 [Rx] Metoprolol Tartrate [Lopressor] 25 mg PO BID 30 Days #60 tab 10/23/23 [Rx] Nitroglycerin Sl Tabs [Nitrostat] 0.4 mg SUBLINGUAL Q5M PRN #30 tab 10/23/23 [Rx] Ticagrelor [Brilinta] 90 mg PO BID 30 Days #60 tab 10/23/23 [Rx] Follow up Appointment(s)/Referral(s): Eric Choi MD [Primary Care Provider] - 1-2 days Andry Ortiz MD [STAFF PHYSICIAN] - 1 Week Patient Instructions/Handouts: *Surgery [facility] - After Heart Catheterization - Business Continuity Consultant Instructions Discharge Disposition: HOME SELF-CARE
--- NOTE | 2023-10-23 19:28 | P.PN ---
Subjective Patient is doing well no chest discomfort dizziness or lightheadedness On examination 133/77 mmHg Heart sounds normal no murmurs no gallop no rub Lungs are clear no rhonchi no crackles No JVD No lower extremity edema Sodium 137 potassium 4.4 BUN 14 creatinine 0.8 Triglycerides 636 HDL 34 TSH normal 1.0 Impression non-Q wave myocardial infarction acute coronary syndrome Mid LAD stenosis status post stenting Hypertriglyceridemia greater than 600 Preserved LV systolic function on echo Plan Add Zetia 10 mg p.o. daily Brilinta 90 mg twice daily aspirin 81 mg p.o. daily Atorvastatin 80 mg daily Metoprolol 25 mg twice daily Objective - Vital Signs Vital signs: Vital Signs Temp 97.9 F 10/23/23 08:00 Pulse 60 10/23/23 08:00 Resp 16 10/23/23 08:00 BP 150/74 10/23/23 08:00 Pulse Ox 97 10/23/23 08:00 FiO2 Intake & Output 10/23/23 10/23/23 10/24/23 06:59 18:59 06:59 Intake Total 10 118 Balance 10 118 Intake: IV 10 Invasive Line 1 10 Oral 118 Other: Voiding Method Toilet # Voids 2 1 - Labs CBC & Chem 7: 10/23/23 08:20 10/23/23 08:20 Labs: Abnormal Lab Results - Last 24 Hours (Table) 10/23/23 Range/Units 08:20 Glucose 161 H (74-99) mg/dL Total Bilirubin 1.7 H (0.2-1.3) mg/dL
[2023-10-23] MEDS ORDERED: ATORVASTATIN 80 MG TAB PO SCH (21:00)
== END 2023-10-23 13:20 | disposition home or self-care (01) | DRG 322 ==
LOC: EC 15:23 → 3SCARD 17:38 → OBSVTOIN 10-23 08:15
PROVIDERS: ADMIT Internal Medicine; ATTEND Internal Medicine
PROC: 027034Z Dilation of Coronary Artery, One Artery with Drug-eluting Intraluminal Device, Percutaneous Approach (ICD-10-PCS; principal; 2023-10-22 13:50)
PROC: 4A023N7 Measurement of Cardiac Sampling and Pressure, Left Heart, Percutaneous Approach (ICD-10-PCS; 2023-10-22 13:50)
PROC: B2111ZZ Fluoroscopy of Multiple Coronary Arteries using Low Osmolar Contrast (ICD-10-PCS; 2023-10-22 13:50)
PROC: B240ZZ3 Ultrasonography of Single Coronary Artery, Intravascular (ICD-10-PCS; 2023-10-22 13:50)
DX: I21.4 Non-ST elevation (NSTEMI) myocardial infarction (principal); Z68.37 Body mass index [BMI] 37.0-37.9, adult; E66.9 Obesity, unspecified; I25.119 Atherosclerotic heart disease of native coronary artery with unspecified angina pectoris; R73.03 Prediabetes; E78.1 Pure hyperglyceridemia; Z79.82 Long term (current) use of aspirin; Z87.19 Personal history of other diseases of the digestive system
CPT/HCPCS: 36415; 71046; 76937; 80053; 80061; 83036; 83721; 83735; 84443; 84484; 85025; 85049; 85379; 85610; 85730; 92978; 93005; 93306; 93458; 96365; 96366; 99291